=== PATIENT | female | born 1940 | race Caucasian/White ===

== ENCOUNTER → 2016-04-18 | Day surgery (SDC) | payer MEDICARE, OTHER | END | disposition home or self-care (01) | LOC: LAB 04-14 10:46 → SDCH 04-14 10:46 → EDSTATUS 04-14 11:40 → SDCH 10:53 | DX: C67.2 Malignant neoplasm of lateral wall of bladder (principal); F17.210 Nicotine dependence, cigarettes, uncomplicated; Z87.440 Personal history of urinary (tract) infections | CPT/HCPCS: J2704; J9280 ==

== ENCOUNTER → 2016-05-02 | Day surgery (SDC) | payer MEDICARE, OTHER | END | disposition home or self-care (01) | LOC: SDC 09:31 | DX: C67.9 Malignant neoplasm of bladder, unspecified (principal); Z79.899 Other long term (current) drug therapy | CPT/HCPCS: J9031 ==

== ENCOUNTER → 2016-05-06 | Day surgery (SDC) | payer MEDICARE, OTHER | END | disposition home or self-care (01) | LOC: SDC 09:42 | DX: C67.9 Malignant neoplasm of bladder, unspecified (principal); Z79.899 Other long term (current) drug therapy | CPT/HCPCS: J9031 ==

== ENCOUNTER → 2016-05-13 | Day surgery (SDC) | payer MEDICARE, OTHER | END | disposition home or self-care (01) | LOC: SDC 09:33 | DX: C67.9 Malignant neoplasm of bladder, unspecified (principal) | CPT/HCPCS: J9031 ==

== ENCOUNTER → 2016-05-19 | Day surgery (SDC) | payer MEDICARE, OTHER | END | disposition home or self-care (01) | LOC: SDC 05-16 10:00 | DX: C67.9 Malignant neoplasm of bladder, unspecified (principal); Z79.899 Other long term (current) drug therapy | CPT/HCPCS: J9031 ==

== ENCOUNTER → 2016-06-10 | Day surgery (SDC) | payer MEDICARE, OTHER | END | disposition home or self-care (01) | LOC: SDC 09:31 | DX: C67.9 Malignant neoplasm of bladder, unspecified (principal); Z79.899 Other long term (current) drug therapy | CPT/HCPCS: J9031 ==

== ENCOUNTER → 2016-06-17 | Day surgery (SDC) | payer MEDICARE, OTHER | END | disposition home or self-care (01) | LOC: SDC 06-09 10:00 | DX: C67.9 Malignant neoplasm of bladder, unspecified (principal); Z79.899 Other long term (current) drug therapy | CPT/HCPCS: J9031 ==